=== PATIENT | female | born 1935 | race Caucasian/White ===

== ENCOUNTER → 2018-10-23 | Outpatient (CLI) | payer MEDICARE, BC ==
--- NOTE | 2018-10-23 15:30 | 2DMMODE ---
[place] [address] 2 D/M-MODE ECHOCARDIOGRAM Name: DONALDOCARLOS MELIZA Room: [facility]#: [id number] Admission: 10/23/18 Attend Phys: Junior Taylor, Discharge: Date of : 37 Date of Service: 10/23/18 1530 Report #: [id number] THIS REPORT FOR: //name// APPROVED REPORT Study performed: 10/23/2018 13:42:43 EXAM: Comprehensive 2D, Doppler, and color-flow Echocardiogram Patient Location: Out-Patient BSA: 1.66 HR: 67 bpm Other Information Study Quality: Good Indications Murmur 2D Dimensions IVSd: 9.88 (7-11mm) LVOT Diam: 19.97 (18-24mm) LVDd: 46.04 mm PWd: 9.25 (7-11mm) Ascending Ao: 23.48 (22-36mm) LVDs: 21.15 (25-40mm) Aortic Root: 21.59 mm Volumes Left Atrial Volume (Systole) LA ESV Index: 24.30 mL/m2 Aortic Valve AoV Peak Samuel.: 1.72 m/s AO Peak Gr.: 11.82 mmHg LVOT Max P.14 mmHg AO Mean Gr.: 6.81 mmHg LVOT Mean P.17 mmHg LVOT Max V: 1.43 m/s AO V2 VTI: 45.77 cm LVOT Mean V: 0.94 m/s AYO (VTI): 2.14 cm2 LVOT V1 VTI: 31.30 cm AI Monroe: 2.83 m/s2 AI PHT: 428.48 ms Mitral Valve MV Peak Gr.: 14.05 mmHg MV Mean Gr.: 7.59 mmHg E/A Ratio: 0.87 MV Decel. Time: 397.81 [place] [address] 2 D/M-MODE ECHOCARDIOGRAM Name: KINGCARLOS LEE Room: [facility]#: [id number] Admission: 10/23/18 Attend Phys: Junior Taylor, Discharge: Date of : 37 Date of Service: 10/23/18 1530 Report #: [id number] MV E Max Samuel.: 1.48 m/s MV PHT: 115.37 ms MVA (PHT): 1.91 cm2 TDI E/Lateral E': 29.60 E/Medial E': 24.67 Medial E' Samuel.: 0.06 m/s Lateral E' Samuel.: 0.05 m/s Pulmonary Valve PV Peak Samuel.: 1.04 m/s PV Peak Gr.: 4.32 mmHg Tricuspid Valve RAP Estimate: 5.00 mmHg TR Peak Gr.: 34.39 mmHg RVSP: 39.39 mmHg PA Pressure: 39.39 mmHg Left Ventricle The left ventricle is normal size. There is normal LV segmental wall motion. Mild concentric left ventricular hypertrophy. Left ventricular systolic function is normal. The left ventricular ejection fraction is within the normal range. LVEF is 65-70%. Grade I - abnormal relaxation pattern. Right Ventricle The right ventricle is normal size. The right ventricular systolic function is normal. Atria The left atrium size is normal. The right atrium size is normal. Aortic Valve Aortic valve is moderately calcified. Moderate aortic regurgitation. There is no aortic valvular stenosis. Mitral Valve Moderate mitral annular calcification. Mild mitral regurgitation. Mild mitral stenosis. Tricuspid Valve The tricuspid valve is normal in structure. Mild to moderate tricuspid regurgitation. estimated pa pressure 45 mm Hg Pulmonic Valve Pulmonic valve is not well visualized. There [place] [address] 2 D/M-MODE ECHOCARDIOGRAM Name: CARLOS FULTON Room: [facility]#: [id number] Admission: 10/23/18 Attend Phys: Junior Taylor, Discharge: Date of : 37 Date of Service: 10/23/18 1530 Report #: [id number] regurgitation. Great Vessels The aortic root is normal in size. IVC is normal in size and collapses >50% with inspiration. Pericardium There is no pericardial effusion. <Conclusion> Mild concentric left ventricular hypertrophy. LVEF is 65-70%. Moderate aortic regurgitation. Aortic valve is moderately calcified. Mild mitral regurgitation. Mild to moderate tricuspid regurgitation. estimated pa pressure 45 mm Hg <ELECTRONICALLY SIGNED> By: Kishan Edwards MD, [facility] 10/23/18 1530 [id number] Kishan Edwards MD, FACC /INF
--- NOTE | 2018-10-23 16:52 | CARDNUC ---
[place] [address] CARDIAC NUCLEAR IMAGING REPORT Name: CARLOS ALEXANDRE Room: [facility]#: [id number] Admission: 10/23/18 Attend Phys: Junior Taylor, Discharge: Date of : 37 Date of Service: 10/23/18 1651 Report #: [id number] THIS REPORT FOR: //name// APPROVED REPORT Imaging Protocol: Rest Tc-99m/Stress Tc-99m 1 day Study performed: 10/23/2018 12:45:00 Indication: Abnormal EKG Patient Location: Out-Patient Stress Tech: Rosalina Alexandre Stress Nurse: Marilou Barillas RN NM Tech:JARRET Morales Ht: 5 ft 3 in Wt: 143 lbs BSA: 1.68 m2 BMI: 25.32 Medical History Medical History: ABN EKG, Hyperlipidemia, HTN Medications: HCTZ, Simvastatin, Lisinopril, K+. Allergies: Ciprofloxacin, Penicillins, Sulfa ABT. 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 Time of rest injection: 1300 Date: 10/23/2018 The images were gated to evaluate regional wall motion and calculate left ventricular ejection fraction. Administration Route: IV Administration Site: Right Wrist Pharmacologic Stress Pharmacologic stress test was performed by injecting Regadenoson 0.4 mg IV push over 10-15 seconds immediately followed by the intravenous injection of 34.0 mCi of Tc-99m Sestamibi. Time of stress injection: 1450 Date: 10/23/2018 Administration Route: IV Administration Site: [place] [address] CARDIAC NUCLEAR IMAGING REPORT Name: KINGCARLOS LEE [id number] Admission: 10/23/18 Attend Phys: Junior Taylor, Discharge: Date of : 37 Date of Service: 10/23/18 1651 Report #: [id number] Gated Stress SPECT was performed 40 minutes after stress injection. The images were gated to evaluate regional wall motion and calculate left ventricular ejection fraction. Prone imaging was performed. Stress Test Details Stress Test: Pharmacologic stress testing performed using 0.4 mg of regadenoson per 5 mL given IV over 10 seconds. Reason for pharmacologic stress test: arthritis with active pain in hips and back.. HR Max Heart Rate (APMHR): 138 bpm Resting HR: 59 bpm Target HR (85% APMHR): 117 bpm Max HR Achieved: 97 bpm % of APMHR: 70 Recovery HR: 79 bpm BP Resting BP: 202/94 mmHg Max BP: 119/69 mmHg Recovery BP: 165/68 mmHg ECG Resting ECG: Sinus Rhythm, nonspecific ST-T abnormalities Stress ECG: Sinus Rhythm, nonspecific ST-T abnormalities ST Change: Downsloping ST depression Maximum ST Deviation: 1 mm Arrhythmia: None Recovery ECG: Sinus Rhythm, nonspecific ST-T abnormalities Recovery ST Change: Downsloping ST depression Recovery ST Deviation: 1 mm Recovery Arrhythmia: None Clinical Reason for Termination: Completed protocol Stress Symptoms: None Exercise duration: 0 min 0 sec Exercise capacity: 1.00 METs The patient tolerated Lexiscan infusion without significant cardiac symptoms. Nurse Comments 83 year old female presented with recent HX of ABN ECG. Patient tolerated sitting Lexiscan well. Recovery [place] [address] CARDIAC NUCLEAR IMAGING REPORT Name: CARLOS ALEXANDRE Room: [facility]#: [id number] Admission: 10/23/18 Attend Phys: Junior Taylor, Discharge: Date of : 37 Date of Service: 10/23/18 1651 Report #: [id number] escorted by staff to Nuclear Medicine for images. Patient was stable with no complaints at that time. Stress ECG Conclusion The baseline 12-lead EKG shows sinus rhythm with very subtle ST segment depression in the inferolateral leads. EKGs obtained during and post Lexiscan infusion show sinus rhythm with ST segment depression that is down sloping in the inferolateral leads that is approximately 1 mm deeper than on resting EKG. No stress-induced arrhythmias were identified. Study Quality Study: Good Artifact: No artifact Study Data At rest, the left ventricular ejection fraction was 84%.. Post stress, the left ventricular ejection was 82%.. TID = 1.14. Perfusion Normal left ventricular perfusion. Wall Motion Normal left ventricular wall motion. Nuclear Conclusion ECG Findings: non-diagnostic Clinical Findings: negative for ischemia Nuclear Findings: negative for ischemia Exercise Capacity: not assessed Left Ventricular Function: normal Risk Study: low Myocardial perfusion images show no defect to suggest infarct or ischemia. Left ventricular systolic function appears normal on gated studies. This is a low risk study. <Conclusion> The baseline 12-lead EKG shows sinus rhythm with very subtle ST segment depression in the inferolateral leads. EKGs obtained during and post Lexiscan infusion show sinus rhythm with ST segment depression that is down sloping in the inferolateral [place] [address] CARDIAC NUCLEAR IMAGING REPORT Name: KINGCARLOS MELIZA Room: [facility]#: [id number] Admission: 10/23/18 Attend Phys: Junior Taylor, Discharge: Date of : 37 Date of Service: 10/23/18 1651 Report #: [id number] approximately 1 mm deeper than on resting EKG. No stress-induced arrhythmias were identified. <ELECTRONICALLY SIGNED> By: Junior Taylor MD, FACC 10/23/181650 50 50 Junior Taylor MD, FACC /INF
== END ==
LOC: M.CRD 09-25 14:10 → M.NUC 12:40
DX: I08.3 Combined rheumatic disorders of mitral, aortic and tricuspid valves (principal); I10 Essential (primary) hypertension; E78.5 Hyperlipidemia, unspecified; M16.0 Bilateral primary osteoarthritis of hip; Z88.1 Allergy status to other antibiotic agents; Z88.0 Allergy status to penicillin; Z88.2 Allergy status to sulfonamides; Z82.49 Family history of ischemic heart disease and other diseases of the circulatory system